=== PATIENT | female | born 1950 | race Caucasian/White ===

== ENCOUNTER → 2016-08-28 | Outpatient (CLI) | payer MEDICARE, BC ==
[~2016-08-28] MED LIST: ASPIRIN EC81 MG PO; ATIVAN 0.5MG0.5 MG PO; CITRACAL+D(315M1 TAB PO; ESTRACE(ESTRADIO1 MG PO; LEXAPRO20 MG PO; MOBIC15 MG PO; NORCO 5-325 MG1 TAB PO; OSTEO BI-FLEX1 EAC1 PO; VITAMIN D1000 UNIT PO
== END | disposition disaster alternative care site (69) ==
LOC: GKIC 08-21 12:00
DX: C01 Malignant neoplasm of base of tongue (principal); R91.1 Solitary pulmonary nodule
CPT/HCPCS: A9552